=== PATIENT | male | born 1950 | race African-American/Black ===

== ENCOUNTER → 2016-11-03 | Outpatient (CLI) | payer BC, OTHER ==
--- NOTE | 2016-11-03 17:00 | RAD ---
Right knee, 3 views, 11/03/2016: History: Knee pain, no known injury No fracture or dislocation is identified. There is mild spurring at the patellofemoral articulation. There are prominent spurs arising from the tibial tuberosity and the inferior pole of the patella. No significant joint effusion is evident. IMPRESSION: 1. Mild degenerative change. 2. No acute bony abnormality is detected.
== END | disposition home or self-care (01) ==
LOC: DXRADRC 11:12
PROVIDERS: ATTEND Physician Assistant
DX: M17.11 Unilateral primary osteoarthritis, right knee (principal)
CPT/HCPCS: 73562

== ENCOUNTER 2017-07-01 08:07 | Emergency (ER) | payer MEDICARE, OTHER, BC ==
[~2017-07-01] VITALS: Ht 188 cm; Wt 126.4 kg
[2017-07-01] MEDS ORDERED: IOHEXOL 240 MG/ML 50ML VIAL. ONE (08:36)
[2017-07-01] MEDS ORDERED: IOHEXOL 300 MG/ML 75 ML VIAL. IV ONE (08:45)
[2017-07-01] MEDS ORDERED: IV NORMAL SALINE 1,000ML 1,000 ML IV SCH (08:45)
[2017-07-01] MEDS ORDERED: 0.9 % SODIUM CHLORIDE 10 ML DISP.SYRIN. IV PRN (08:45)
[2017-07-01 09:02] LABS: BASO % 0 % (0-3); EOS % 0 % (0-3); HEMATOCRIT 37.7 % (39.0-53.0); HEMOGLOBIN 12.5 g/dL (13.0-17.5); LYMPH # 0.6 x10^3/uL (1.0-4.8); LYMPH % 5 % (24-48); MEAN CORPUSCULAR HEMOGLOBIN 27 pg (25-35); MEAN CORPUSCULAR HGB CONC 33 g/dL (31-37); MEAN CORPUSCULAR VOLUME 82 fL (79-100); MONO # 0.6 x10^3/uL (0.0-1.1); MONO % 6 % (0-9); NEUT % 89 % (31-73); PLATELET COUNT 282 x10^3/uL (140-400); RED BLOOD COUNT 4.63 x10^6/uL (4.30-5.70); RED CELL DISTRIBUTION WIDTH 15.2 % (11.5-14.5); WHITE BLOOD COUNT 11.3 x10^3/uL (4.0-11.0)
--- NOTE | 2017-07-01 09:08 | PHYS DOC ---
Past History Past Medical History: Diabetes, Hypertension Smoking: Non-smoker Alcohol Use: None Drug Use: None Adult General Chief Complaint Chief Complaint: ABDOMINAL PAIN HPI HPI 66-year-old male patient complaining of frequent episodes of bowel movement and urination since last night and states she had more than 30 episodes of small amounts of firmed bowel movement associated with urinary frequency at the same time. Patient states his stools became loose since this morning. Patient complaining of lower abdominal cramping pain during episodes of bowel movements and urination. Patient complaining of abdominal distention. Patient denies nausea and vomiting, fever and chills, chest pain, shortness of breath. Patient states he has had lower back pain for 1 week that getting worse with movement radiation or focal neuro deficit. Patient had history of prostate biopsy 2 years ago with unremarkable findings. Review of Systems Review of Systems Constitutional: Denies fever or chills [] Eyes: Denies change in visual acuity, redness, or eye pain [] HENT: Denies nasal congestion or sore throat [] Respiratory: Denies cough or shortness of breath [] Cardiovascular: No additional information not addressed in HPI [] GI: Reports abdominal pain, diarrhea [] : Reports dysuria and frequency[] Musculoskeletal: Denies back pain or joint pain [] Integument: Denies rash or skin lesions [] Neurologic: Denies headache, focal weakness or sensory changes [] Endocrine: Denies polyuria or polydipsia [] All other systems were reviewed and found to be within normal limits, except as documented in this note. Current Medications Current Medications Current Medications Medications (Trade) Dose Ordered Sig/Christina Start Time Stop Time Status Last Admin Dose Admin Fentanyl Citrate (Fentanyl 2ml Vial) 100 mcg STK-MED ONCE 07/01/17 08:37 07/01/17 08:38 DC Iohexol (Omnipaque 240 Mg/ml) 50 ml STK-MED ONCE 07/01/17 08:36 07/01/17 08:37 DC Iohexol (Omnipaque 300 Mg/ml) 75 ml 1X ONCE 07/01/17 08:45 07/01/17 08:46 DC Sodium Chloride (Normal Saline Flush) 10 ml QSHIFT PRN 07/01/17 08:45 Allergies Allergies Allergies Coded Allergies Type Severity Reaction Last Updated Verified No Known Drug Allergies 07/01/17 No Physical Exam Physical Exam Constitutional: Well developed, well nourished, moderate distress, non-toxic appearance. [] HENT: Normocephalic, atraumatic, oropharynx dry, no oral exudates, nose normal. [] Eyes: PERRLA, EOMI, conjunctiva normal, no discharge. [] Neck: Normal range of motion, no tenderness, supple, no stridor. [] Cardiovascular:Heart rate regular rhythm, no murmur [] Lungs & Thorax: Bilateral breath sounds clear to auscultation [] Abdomen: Hyperactive bowel sounds, distended abdomen , lower abdominal guarding , no masses, no pulsatile masses. [] Skin: Warm, dry, no erythema, no rash. [] Back: No tenderness, no CVA tenderness. [] Extremities: No tenderness, no cyanosis, no clubbing, ROM intact, no edema. [] Neurologic: Alert and oriented X 3, normal motor function, normal sensory function, no focal deficits noted. [] Psychologic: Affect normal, judgement normal, mood normal. [] EKG EKG [] Radiology/Procedures Radiology/Procedures [][place] [address] IMAGING REPORT Signed PATIENT: EHSAN ROMERO ACCOUNT: [id number] : 1950 LOCATION: ER AGE: 66 SEX: M EXAM STATUS: REG ER ORD. PHYSICIAN: ANTHONY FRENCH MD REASON: abdominal pain PROCEDURE: CT ABD PELV W/ORAL&IV CONTRAST CT abdomen pelvis with contrast 07/01/2017 CLINICAL INDICATION: Left lower quadrant and back pain. COMPARISON: Ultrasound abdomen complete 02/29/2012. TECHNIQUE: Multiple CT images of the abdomen and pelvis were obtained following the intravenous administration of 75 mL Omnipaque 300. *One or more of the following individualized dose reduction techniques were utilized for this examination: 1. Automated exposure control. 2. Adjustment of the mA and/or kV according to patient size. 3. Use of iterative reconstruction technique. FINDINGS: Heart size is normal. Visualized lung bases are clear. There is diffuse hepatic steatosis. Gallbladder, spleen, adrenal glands, pancreas are unremarkable. Both kidneys present with moderate perinephric stranding, slightly asymmetric to the left. There is a simple cyst in the inferior pole of the right kidney measuring 1.3 cm. There are few additional bilateral renal hypodensities which are too small to definitively characterize. No hydronephrosis. Abdominal aorta is normal in caliber with mild aortoiliac calcified atheromatous disease. Incidental note is made of a circumaortic left renal vein. Major portal, splenic and visualized superior mesenteric veins are patent. Small and large bowel loops are normal caliber without obstruction. Appendix is normal in appearance. No abdominal free fluid. No pneumoperitoneum. Moderate distention of the urinary bladder to the level the umbilicus with extraperitoneal stranding near the dome of the bladder. There is moderate prostate enlargement with nodular protrusion into the base of the urinary bladder. There is a left prostate cystic lesion measuring up to 3.3 cm series 2/image 85 most prominent in the mid aspect of the transitional zone. No iliac or inguinal lymphadenopathy. Multilevel lumbar spondylosis. Grade 1 retrolisthesis L5 on S1. IMPRESSION: 1. Marked enlargement of the prostate with nodular protrusion into the base of the urinary bladder. 3.3 cm left transitional zone prostate cystic lesion. Findings may represent cystic degeneration of a BPH nodule, however abscess or malignancy cannot be excluded. Urology consult is recommended. 2. Moderate urinary bladder distention to the level of the umbilicus, urinary outflow obstruction cannot be excluded. 3. Moderate perinephric stranding, asymmetric to the left. Finding is nonspecific and may be reactive due to the urinary bladder distention, however chronic kidney disease or pyelonephritis could have a similar appearance. 4. Right renal cysts and additional bilateral renal hypodensities which are too small to characterize. 5. Hepatic steatosis. Electronically signed by: Cathy Rehman MD (07/01/2017 10:33 AM) [id number] DICTATED AND SIGNED BY: CATHY REHMAN MD DATE: 07/01/17 1021 CC: ANTHONY FRENCH MD; JAMIN DUDLEY ~ Course & Med Decision Making Course & Med Decision Making Pertinent Labs and Imaging studies reviewed. (See chart for details) Evaluation of patient in ER showed 66-year-old male patient with complaining of urinary frequency and dysuria diarrhea since last night with lower abdominal pain. Patient was afebrile at arrival to ER without tachycardia or tachypnea. Urine was like pus. Patient was treated with IV fluid, fentanyl, and Rocephin. Patient developed fever up to 103 with tachypnea and tachycardia. Lactic acid was 3.4 and patient treated with IV fluids and Tylenol and ibuprofen and vancomycin with improvement of his condition. Dr. Henriquez informed at 1040 and agreed to transfer patient to [facility] and accepted transfer. Patient and his informed about plan of care and needs for transfer. Patient had sign of sepsis secondary to UTI Dragon Disclaimer Dragon Disclaimer This electronic medical record was generated, in whole or in part, using a voice recognition dictation system. Departure Departure: Impression: Primary Impression: Sepsis secondary to UTI Additional Impressions: Enlarged prostate Bladder distention Fever Uncontrolled diabetes mellitus Renal insufficiency Disposition: 02 XFER SHT-TRM HOSP ([facility] at 1041) Admitting Physician: Tha Henriquez Condition: GUARDED Referrals: JAMIN DUDLEY (PCP) Critical Care Time Critical care time was [80] minutes exclusive of procedures. Problem Qualifiers ANTHONY FRENCH MD July 01, 2017 09:08
[2017-07-01 09:12] LABS: ALBUMIN 4.1 g/dL (3.4-5.0); ALBUMIN/GLOBULIN RATIO 0.9 (1.0-1.7); CALCIUM 9.2 mg/dL (8.5-10.1); CREATININE 1.4 mg/dL (0.7-1.3); POTASSIUM 4.2 mmol/L (3.5-5.1); TOTAL BILIRUBIN 0.6 mg/dL (0.2-1.0); TOTAL PROTEIN 8.9 g/dL (6.4-8.2)
[2017-07-01 09:13] LABS: CLARITY,URINE TURBID; COLOR,URINE YELLOW; GLUCOSE,URINE NEG (NEG)
[2017-07-01 09:14] LABS: BACTERIA,URINE MOD /HPF (0-FEW); BILIRUBIN,URINE NEG (NEG); NITRITE,URINE NEG (NEG); UROBILINOGEN,URINE 0.2 mg/dL (0.2 mg/dL); WBC,URINE >40 /HPF (0-4)
[2017-07-01] MEDS ORDERED: cefTRIAXone IV Push 1 GM VIAL. IVP ONE (09:30)
[2017-07-01] MEDS ORDERED: MORPHINE SULFATE 4 MG/ML DISP.SYRIN. IV ONE (10:30)
[2017-07-01] MEDS ORDERED: IV NORMAL SALINE 1,000ML 1,000 ML IV ONE ×2 (10:30→13:00)
[2017-07-01] MEDS ORDERED: ONDANSETRON PF 4 MG/2 ML VIAL. IV ONE (10:30)
--- NOTE | 2017-07-01 10:36 | RAD ---
CT abdomen pelvis with contrast 07/01/2017 CLINICAL INDICATION: Left lower quadrant and back pain. COMPARISON: Ultrasound abdomen complete 02/29/2012. TECHNIQUE: Multiple CT images of the abdomen and pelvis were obtained following the intravenous administration of 75 mL Omnipaque 300. *One or more of the following individualized dose reduction techniques were utilized for this examination: 1. Automated exposure control. 2. Adjustment of the mA and/or kV according to patient size. 3. Use of iterative reconstruction technique. FINDINGS: Heart size is normal. Visualized lung bases are clear. There is diffuse hepatic steatosis. Gallbladder, spleen, adrenal glands, pancreas are unremarkable. Both kidneys present with moderate perinephric stranding, slightly asymmetric to the left. There is a simple cyst in the inferior pole of the right kidney measuring 1.3 cm. There are few additional bilateral renal hypodensities which are too small to definitively characterize. No hydronephrosis. Abdominal aorta is normal in caliber with mild aortoiliac calcified atheromatous disease. Incidental note is made of a circumaortic left renal vein. Major portal, splenic and visualized superior mesenteric veins are patent. Small and large bowel loops are normal caliber without obstruction. Appendix is normal in appearance. No abdominal free fluid. No pneumoperitoneum. Moderate distention of the urinary bladder to the level the umbilicus with extraperitoneal stranding near the dome of the bladder. There is moderate prostate enlargement with nodular protrusion into the base of the urinary bladder. There is a left prostate cystic lesion measuring up to 3.3 cm series 2/image 85 most prominent in the mid aspect of the transitional zone. No iliac or inguinal lymphadenopathy. Multilevel lumbar spondylosis. Grade 1 retrolisthesis L5 on S1. IMPRESSION: 1. Marked enlargement of the prostate with nodular protrusion into the base of the urinary bladder. 3.3 cm left transitional zone prostate cystic lesion. Findings may represent cystic degeneration of a BPH nodule, however abscess or malignancy cannot be excluded. Urology consult is recommended. 2. Moderate urinary bladder distention to the level of the umbilicus, urinary outflow obstruction cannot be excluded. 3. Moderate perinephric stranding, asymmetric to the left. Finding is nonspecific and may be reactive due to the urinary bladder distention, however chronic kidney disease or pyelonephritis could have a similar appearance. 4. Right renal cysts and additional bilateral renal hypodensities which are too small to characterize. 5. Hepatic steatosis. Electronically signed by: Xiang Rehman MD (07/01/2017 10:33 AM) [id number]
[2017-07-01] MEDS ORDERED: ACETAMINOPHEN 650 MG SUPP.RECT. PR ONE (10:45)
[2017-07-01] MEDS ORDERED: IV NORMAL SALINE 500ML 500 ML ONE (10:48)
[2017-07-01] MEDS ORDERED: VANCOMYCIN 1 GM VIAL. ONE ×2 (10:48→10:55)
[2017-07-01] MEDS ORDERED: ACETAMINOPHEN 500 MG TABLET PO ONE ×2 (11:00)
[2017-07-01] MEDS ORDERED: VANCOMYCIN 2 GM in IV NORMAL SALINE 500ML 500 ML IV ONE (11:00)
[2017-07-01] MEDS ORDERED: IBUPROFEN 800 MG TABLET. PO ONE (12:52)
[2017-07-01] MEDS ORDERED: IBUPROFEN 400 MG TABLET. PO ONE (13:00)
[2017-07-01 13:45] VITALS: BP 135/62
== END 2017-07-01 13:45 | disposition short-term general hospital (02) ==
LOC: ER 08:07
DX: A41.9 Sepsis, unspecified organism (principal); N40.1 Benign prostatic hyperplasia with lower urinary tract symptoms; N32.89 Other specified disorders of bladder; N28.9 Disorder of kidney and ureter, unspecified; I10 Essential (primary) hypertension; E11.9 Type 2 diabetes mellitus without complications
CPT/HCPCS: 36415; 51702; 74177; 80053; 81001; 83605; 83690; 84484; 85025; 87040; 87086; 87205; 96365; 96366; 96375; 99291; 99292; J0696; J2270; J2405; J3010; J3370; J7040; Q9967; J7030

== ENCOUNTER → 2017-11-17 | Outpatient (CLI) | payer MEDICARE, OTHER, BC ==
[2017-11-05 16:56] VITALS: BP 129/67
[~2017-11-17] MED LIST: CEPH-264 PO; FURO-69 PO; HYDR-971 PO; POTA10TA10 PO
--- NOTE | 2017-11-17 12:07 | RAD ---
Right foot, 3 views, 11/17/2018: HISTORY: Foot pain and swelling No fracture or dislocation is identified. No destructive bony lesion is seen. There are mild scattered degenerative changes. Moderate diffuse soft tissue swelling is present. Arterial calcifications are noted. IMPRESSION: No acute bony abnormality is detected. Electronically signed by: Jimmy Gilman MD (11/17/2017 12:03 PM) [facility]
== END | disposition home or self-care (01) ==
LOC: PMG 09:31
PROVIDERS: ATTEND Physician Assistant
DX: M19.071 Primary osteoarthritis, right ankle and foot (principal); I70.91 Generalized atherosclerosis; R22.42 Localized swelling, mass and lump, left lower limb; I10 Essential (primary) hypertension; E11.9 Type 2 diabetes mellitus without complications; E78.00 Pure hypercholesterolemia, unspecified; M17.11 Unilateral primary osteoarthritis, right knee; D64.9 Anemia, unspecified
CPT/HCPCS: 73630

== ENCOUNTER → 2017-11-18 | Outpatient (CLI) | payer MEDICARE, OTHER, BC ==
[2017-11-05 16:56] VITALS: BP 129/67
--- NOTE | 2017-11-18 15:51 | CARD ---
MR#: [id number] Date of Study: 11/18/2017 Ordering Physician: JAMIN DUDLEY, Referring Physician: JAMIN DUDLEY, Tech: Sania Sebastian APPROVED REPORT EXAM: Two-dimensional and M-mode echocardiogram with Doppler and color Doppler. INDICATION Elevated BNP 2D DIMENSIONS RVDd1.5 (2.9-3.5cm)Left Atrium(2D)5.2 (1.6-4.0cm) IVSd0.9 (0.7-1.1cm)Aortic Root(2D)3.1 (2.0-3.7cm) LVDd5.9 (3.9-5.9cm)LVOT Diameter2.2 (1.8-2.4cm) PWd2.0 (0.7-1.1cm)LVDs3.5 (2.5-4.0cm) FS (%) 41.0 %SV121.0 ml LVEF(%)71.1 (>50%) Aortic Valve AoV Peak Larry.155.8cm/sAoV VTI31.8cm AO Peak GR.9.7mmHgLVOT Peak Larry.104.5cm/s LVOT VTI 21.77cmAO Mean GR.5mmHg WILDER (VMAX)2.65ul0BEJ (VTI)2.62cm2 Mitral Valve MV E Uwxccgee362.6cm/sMV DECEL UOGQ069zm MV A Bkdfdaxl10.9cm/sE/A Ratio1.1 Pulmonary Valve PV Peak Jcsxvphc187.1cm/sPV Peak Grad.5mmHg Tricuspid Valve TR P. Etckekij371vs/sRAP EGDINHON8ysOn TR Peak Gr.52ilItOESB19ffGj Pulmonary Vein S1 Hrwfusfc61.8cm/sD2 Pqdhnyxt99.9cm/s LEFT VENTRICLE The left ventricle is normal size. There is borderline concentric left ventricular hypertrophy. The l eft ventricular systolic function is normal. The Ejection Fraction is 60-65%. There is normal LV segm ental wall motion. Transmitral Doppler flow pattern is Grade II-pseudonormal filling dynamics. RIGHT VENTRICLE The right ventricle is normal size. There is normal right ventricular wall thickness. The right ventr icular systolic function is normal. ATRIA The left atrium is moderately dilated. The right atrium size is normal. The interatrial septum is int act with no evidence for an atrial septal defect or patent foramen ovale as noted on 2-D or Doppler i maging. AORTIC VALVE The aortic valve is normal in structure and function. Doppler and Color Flow revealed no significant aortic regurgitation. There is no significant aortic valvular stenosis. MITRAL VALVE The mitral valve is normal in structure and function. Doppler and Color-flow revealed trace mitral re gurgitation. TRICUSPID VALVE Tricuspid valves not well seen. Doppler and Color Flow revealed trace tricuspid regurgitation. There is no tricuspid valve stenosis. PULMONIC VALVE The pulmonic valve is not well visualized. Doppler and Color Flow revealed no pulmonic valvular regur gitation. GREAT VESSELS The aortic root is normal in size. Normal pulmonary venous flow (Doppler). The IVC is normal in size and collapses >50% with inspiration. PERICARDIAL EFFUSION There is no evidence of significant pericardial effusion. Critical Notification Critical Value: No <Conclusion> The left ventricular systolic function is normal. The Ejection Fraction is 60-65%. There is normal LV segmental wall motion. The left atrium is moderately dilated. Trace mitral regurgitation. Trace tricuspid regurgitation. There is no evidence of significant pericardial effusion. Signed by : Haile Simeon, Electronically Approved : 11/18/2017 15:49:45
== END | disposition home or self-care (01) ==
LOC: ECHO 13:44
DX: R79.89 Other specified abnormal findings of blood chemistry (principal); I10 Essential (primary) hypertension; E11.9 Type 2 diabetes mellitus without complications; E78.00 Pure hypercholesterolemia, unspecified; M17.11 Unilateral primary osteoarthritis, right knee; M19.071 Primary osteoarthritis, right ankle and foot
CPT/HCPCS: 93306